=== PATIENT | female | born 1970 | race African-American/Black ===

== ENCOUNTER 2020-11-30 20:17 | Emergency (ER) | payer OTHER ==
[~2020-11-30] VITALS: Ht 157.5 cm; Wt 54.4 kg
[~2020-11-30 20:17] MED LIST: BENTYL 20 MG TA20 M1 PO; CIPROFLOXACIN500 M1 PO; FLAGYL500 MG PO; HYDROCODON-ACE1 EAC7 PO; KEFLEX500 MG PO; PHENERGAN 25 MG25 M1 PO; POTASSIUM20 PO; PROTONIX40 MG PO; REGLAN 10 MG TA10 MG PO; REGLAN 5 MG TAB5 M1 PO; ZANTAC 150MG T150 MG PO; ZOFRAN ODT4 MG PO; ZOFRAN4 MG PO
[2020-11-30 21:48] LABS: ABSOLUTE NEUTROPHILS 3.9 thou/uL (1.4-8.2); BASOPHILS 0.5 % (0.0-2.0); EOSINOPHILS 0.4 % (0.0-3.0); HEMATOCRIT 44.4 % (37.0-47.0); HEMOGLOBIN 14.7 gm/dL (12.0-15.0); MCH 27.9 pg (26.0-34.0); MCHC 33.2 g/dL (28.0-37.0); MONOCYTES 9.1 % (1.0-8.0); PLATELET COUNT 216 thou/uL (150-400); RBC 5.29 mil/uL (4.20-5.00); RDW 13.9 % (10.5-14.5); WBC 5.9 thou/uL (4.0-11.0)
[2020-11-30 21:50] LABS: ANION GAP 15 mmol/L (7-16); BUN 26 mg/dL (7-18); CALCIUM 9.3 mg/dL (8.5-10.1); CHLORIDE 97 mmol/L (98-107); CO2 24 mmol/L (21-32); GLUCOSE 116 mg/dL (74-106); POTASSIUM 3.1 mmol/L (3.5-5.1); SODIUM 136 mmol/L (136-145)
[2020-11-30 22:00] LABS: ALBUMIN 4.6 g/dL (3.4-5.0); DIRECT BILIRUBIN 0.4 mg/dL (<0.1-0.2); SGOT 18 U/L (15-37); SGPT 24 U/L (14-59); TOTAL BILIRUBIN 1.9 mg/dL (0.2-1.0); TOTAL PROTEIN 8.7 g/dL (6.4-8.2); TROPONIN-I <0.06 ng/mL (<0.06)
[2020-12-01 01:10] LABS: URINE BILIRUBIN 1+ (Negative); URINE BLOOD TRACE (Negative); URINE CLARITY SL CLOUDY; URINE COLOR YELLOW; URINE GLUCOSE-RANDOM* NEGATIVE (Negative); URINE KETONES 1+ (Negative); URINE LEUKOCYTES-REFLEX TRACE (Negative); URINE NITRITE-REFLEX NEGATIVE (Negative); URINE PROTEIN (DIPSTICK) 2+ (Negative); URINE SPECIFIC GRAVITY >= 1.030 (1.005-1.035)
[2020-12-01 01:21] LABS: SQUAMOUS 0-3 Few /LPF (0-3); URINE RBC 3-10 Few /HPF (NONE SEEN); WBC CLUMPS Moderate (None Seen)
[2020-12-01 01:22] LABS: CASTS None Seen /LPF (None Seen); CRYSTALS None Seen /LPF (None Seen); MUCUS >6 Heavy strn/LPF (None Seen)
[2020-12-01 02:19] VITALS: BP 142/75
--- NOTE | 2020-12-01 11:23 | EKG ---
[address] [place] [address] ELECTROCARDIOGRAM REPORT Name: RICHIE,NISREEN R Room #: [facility]#: [id number] Admission: 11/30/20 Attend Phys: Discharge: 12/01/20 Date of : 74 Report #: [id number] [facility] ED Test Date: 2020-11-30 Test Time: 20:23:51 Pat Name: NISREEN QUIROZ Department: Room: Gender: F [employer]: : 1970 Requested By: Karina Moon Order Number: [id number] MD: Diogenes Henson Measurements Intervals [place] Rate: 73 P: 61 WA: 165 QRS: 144 QRSD: 94 T: 26 QT: 413 QTc: 456 Interpretive Statements Sinus rhythm Consider right ventricular hypertrophy Compared to ECG 03/25/2013 12:58:30 Sinus bradycardia no longer present Right-axis deviation no longer present Electronically Signed On 12-01-2020 11:23:35 CDT by Diogenes Henson [email or web address] <ELECTRONICALLY SIGNED> By: Diogenes Henson MD 12/01/20 1123 22 22 Diogenes Henson MD /NIDA
== END 2020-12-01 02:21 | disposition home or self-care (01) ==
LOC: ER 20:17
PROVIDERS: Emergency Medicine
DX: R07.89 Other chest pain (principal); R10.13 Epigastric pain; R11.2 Nausea with vomiting, unspecified; R06.02 Shortness of breath; I25.2 Old myocardial infarction; K21.9 Gastro-esophageal reflux disease without esophagitis; Z98.890 Other specified postprocedural states; Z90.721 Acquired absence of ovaries, unilateral; Z79.2 Long term (current) use of antibiotics; Z79.899 Other long term (current) drug therapy